=== PATIENT | female | born 1945 ===

== ENCOUNTER → 2018-12-11 18:47 | Outpatient (REF) | payer MEDICARE, OTHER, SELFPAY ==
[2018-12-11 19:27] LABS: Rheumatoid Factor < 8.6 IU/mL (<12.0)
[2018-12-11 19:52] LABS: Erythrocyte Sedimentation Rate 12 MM/HR (0-20)
[2018-12-13 21:25] LABS: ANA Screen, IFA Negative (Negative)
[2018-12-19 13:41] LABS: SS A Ro Sjogrens Antibody < 1.0; SS B La Sjogrens Antibody < 1.0
== END ==
LOC: LAB 18:47
PROVIDERS: Visit Provider Optometrist
DX: M05.9 Rheumatoid arthritis with rheumatoid factor, unspecified (principal); Z53.21 Procedure and treatment not carried out due to patient leaving prior to being seen by health care provider; R70.0 Elevated erythrocyte sedimentation rate
CPT/HCPCS: 36415; 85651; 86038; 86235; 86430

== ENCOUNTER → 2019-01-01 14:25 | Outpatient (REF) | payer MEDICARE, OTHER, SELFPAY ==
[2019-01-01 15:03] LABS: Add Manual Diff / Slide Review NO; Basophils Absolute Auto 0 /uL (0-100); Basophils Percent Auto 0.9 % (0-2); Eosinophils Absolute Auto 100 /uL (0-450); Eosinophils Percent Auto 2.2 % (2-4); Hematocrit 41.1 % (36-46); Hemoglobin 13.4 g/dL (12.0-16.0); Lymphocytes Absolute Auto 2400 /uL (1100-4500); Lymphocytes Percent Auto 41.3 % (25-40); Mean Corpuscular HGB Conc 32.6 % (30-36); Mean Corpuscular Hemoglobin 31.6 PG (26-34); Monocytes Absolute Auto 600 /uL (0-900); Neutrophils Absolute Auto 2600 /uL (1500-7000); Neutrophils Percent Auto 44.6 % (50-75); Platelet Count 225 X10^3/uL (150-400); Red Blood Cell Count 4.24 X10^6/uL (4.0-5.2); Red Cell Distribution Width 14.2 % (11.6-14.8); White Blood Cell Count 5.8 X10^3/uL (4.5-11.0)
[2019-01-01 15:15] LABS: Alanine Aminotransferase 27 IU/L (9-52); Albumin 4.2 g/dL (3.5-5.0); Albumin Globulin Ratio 1.6 (1.0-2.8); Alkaline Phosphatase 48 U/L (38-126); Aspartate Aminotransferase 24 IU/L (14-36); Bilirubin Total 0.5 mg/dL (0.2-1.3); Blood Urea Nitrogen 15 mg/dL (7-17); Calcium 9.4 mg/dL (8.4-10.2); Carbon Dioxide 28 mmol/L (22-32); Chloride 103 mmol/L (98-107); Cholesterol 238 mg/dL (140-199); Estimated Glomerular Filt Rate > 60.0 mL/min (>60); Globulin 2.7 g/dL (1.7-4.1); Glucose 72 mg/dL (80-110); HDL Cholesterol 71 mg/dL (40-60); HEMOLYSIS < 15 (0-50); LDL Cholesterol Calculated 144 mg/dL (<100); Potassium 4.9 mmol/L (3.4-5.1); Sodium 141 mmol/L (137-145); Total Protein 6.9 g/dL (6.3-8.2); Triglycerides 117 mg/dL (35-150)
[2019-01-01 15:43] LABS: Thyroid Stimulating Hormone 1.28 uIU/mL (0.47-4.68)
== END ==
LOC: LAB 14:25
PROVIDERS: Visit Provider Family Medicine
DX: I10 Essential (primary) hypertension (principal)
CPT/HCPCS: 36415; 80053; 80061; 84443; 85025